=== PATIENT | female | born 1975 | race Caucasian/White ===

== ENCOUNTER 2018-05-10 18:19 | Emergency (ER) | payer OTHER ==
[~2018-05-10] VITALS: Ht 160 cm; Wt 117.9 kg
[~2018-05-10 18:19] MED LIST: ACCUNEB SO1.25 MG/1 INH; GLUCOPHAGE500 MG PO; SYNTHROID50 MCG PO; ZESTORETIC 20-1 EAC1 PO
[2018-05-10] MEDS ORDERED: CALCIUM 500 +1 EAC5 PO (18:39)
[2018-05-10] MEDS ORDERED: IRON325 PO (18:40)
[2018-05-10] MEDS ORDERED: SINGULAIR 10 MG10 M1 PO (18:40)
[2018-05-10] MEDS ORDERED: CELEXA20 MG PO (18:40)
[2018-05-10] MEDS ORDERED: MOBIC7.5 MG PO (18:41)
[2018-05-10] MEDS ORDERED: CLARITIN10 MG PO (18:41)
[2018-05-10 19:19] LABS: ABSOLUTE EOSINOPHILS 0.1 thou/uL (0.0-0.7); ABSOLUTE LYMPHOCYTES 2.1 thou/uL (0.8-5.3); ABSOLUTE MONOCYTES 0.4 thou/uL (0.0-1.2); ABSOLUTE NEUTROPHILS 3.4 thou/uL (1.6-8.1); BASOPHILS 0.7 %; EOSINOPHILS 1.6 %; HEMOGLOBIN 11.6 gm/dL (12.0-15.0); LYMPHOCYTES 34.3 %; MCH 28.3 pg (26.0-34.0); MCHC 33.3 g/dL (28.0-37.0); MCV 85.1 fL (80.0-100.0); MONOCYTES 7.3 %; MPV 7.4 fl. (7.2-11.1); NUCLEATED RBCS 0 /100WBC; PLATELET COUNT* 328 thou/uL (150-400); POLYS 56.1 %; RBC 4.11 mil/uL (4.20-5.00); RDW-CV 13.6 % (10.5-14.5)
[2018-05-10 19:26] LABS: ANION GAP 11 mmol/L (7-16); BUN 23 mg/dL (7-18); CALCIUM 9.1 mg/dL (8.5-10.1); CHLORIDE 104 mmol/L (98-107); CO2 28 mmol/L (21-32); CREATININE 1.3 mg/dL (0.6-1.3); GLUCOSE 112 mg/dL (70-99); POTASSIUM 3.9 mmol/L (3.5-5.1); SODIUM 143 mmol/L (136-145)
[2018-05-10 19:33] LABS: ALBUMIN 3.7 g/dL (3.4-5.0); ALKALINE PHOSPHATASE 69 U/L (46-116); SGOT 20 U/L (15-37); SGPT 30 U/L (30-65); TOTAL BILIRUBIN 0.3 mg/dL (<0.1-1.0); TOTAL PROTEIN 7.6 g/dL (6.4-8.2); TROPONIN-I LEVEL <0.06 ng/mL (<0.06)
[2018-05-10] MEDS ORDERED: ANTIVERT25 MG PO (19:58)
[2018-05-10] MEDS ORDERED: ACETAMINOPHEN-1 EAC1 PO (19:58)
[2018-05-10 20:14] LABS: URINE BILIRUBIN NEGATIVE (Negative); URINE BLOOD NEGATIVE (Negative); URINE CLARITY CLOUDY; URINE COLOR DARK YELLOW; URINE GLUCOSE-RANDOM NEGATIVE (Negative); URINE KETONES NEGATIVE (Negative); URINE LEUKOCYTES-REFLEX 1+ (Negative); URINE PROTEIN NEGATIVE (Negative); URINE SPECIFIC GRAVITY >= 1.030 (1.005-1.030); URINE UROBILINOGEN 0.2 E.U./dl (0.2-1.0)
[2018-05-10 20:15] LABS: URINE NITRITE-REFLEX POSITIVE (Negative)
[2018-05-10] MEDS ORDERED: MACROBID 100 M100 M1 PO (20:19)
[2018-05-10 20:20] LABS: BACTERIA-REFLEX 1-9 Few /HPF (None Seen); CASTS None Seen /LPF (None Seen); CRYSTALS None Seen /LPF (None Seen); SQUAMOUS 0-3 Few /LPF (0-3); URINE RBC 0-2 Rare /HPF (0-2); URINE WBC-REFLEX 6-15 Few /HPF (0-5)
[2018-05-10 20:27] VITALS: BP 157/97
--- NOTE | 2018-05-12 14:46 | EKG ---
[place] [address] ELECTROCARDIOGRAM REPORT Name: YUNI GABRIELEL Room: [facility]#: [id number] Admission: 05/10/18 Attend Phys: Discharge: 05/10/18 Date of : 73 Report #: [id number] THIS REPORT FOR: //name// [facility] ED Test Date: 2018-05-10 Test Time: 20:19:35 Pat Name: YUNI GABRIEL Department: Room: Gender: F Director Heart: Martha RANDHAWA : 1975 Requested By: Caprice Rebolledo Order Number: [id number] MD: Dax Moreau Measurements Intervals [place] Rate: 88 P: 36 MD: 139 QRS: 20 QRSD: 107 T: -8 QT: 368 QTc: 446 Interpretive Statements Sinus rhythm Borderline T abnormalities, inferior leads Compared to ECG 01/18/2016 03:12:09 T-wave abnormality now present Electronically Signed On 05-12-2018 14:45:54 FACILITIES LOCATOR by Dax Moreau [email or web address] <ELECTRONICALLY SIGNED> By: Dax Moreau MD, [facility] 05/12/18 1445 18 18 Dax Moreau MD, FACC /EPI
== END 2018-05-10 20:29 | disposition home or self-care (01) ==
LOC: M.ERS 18:19
PROVIDERS: Physician Assistant
DX: M54.5 Low back pain (principal); M25.512 Pain in left shoulder; M25.522 Pain in left elbow; R42 Dizziness and giddiness; N39.0 Urinary tract infection, site not specified; E03.9 Hypothyroidism, unspecified; E11.9 Type 2 diabetes mellitus without complications; I10 Essential (primary) hypertension; K21.9 Gastro-esophageal reflux disease without esophagitis; J45.909 Unspecified asthma, uncomplicated; Z90.710 Acquired absence of both cervix and uterus; Z88.2 Allergy status to sulfonamides; Z88.8 Allergy status to other drugs, medicaments and biological substances; W19.XXXA Unspecified fall, initial encounter; Y93.89 Activity, other specified; Y92.89 Other specified places as the place of occurrence of the external cause; Y99.8 Other external cause status